=== PATIENT | male | born 1995 | race Caucasian/White ===

== ENCOUNTER 2021-12-03 09:46 | Emergency (ER) | payer BC ==
[2021-12-03] MEDS: Lidocaine 5% 700 MG Patch TRDERM ONE (10:28)
[2021-12-03] MEDS: Ibuprofen 400 MG Tab PO ONE (10:28)
[2021-12-03] MEDS: Acetaminophen 500 MG Tab PO ONE (10:28)
== END 2021-12-03 11:54 | disposition home or self-care (01) ==
LOC: MW.ED 09:46
DX: M25.561 Pain in right knee (principal); F17.210 Nicotine dependence, cigarettes, uncomplicated; Z86.16 Personal history of COVID-19
CPT/HCPCS: 73562; 99283; A9270; 99282